=== PATIENT | male | born 1935 | race Caucasian/White ===

== ENCOUNTER 2016-11-03 13:00 | Outpatient (CLI) | payer MEDICARE ==
[~2016-11-03 13:00] MED LIST: Gadobenate Dimeglumine 529 MG/1 ML (20ML VIAL) ONE
--- OUTSIDE RECORDS SUMMARY | 2016-11-03 13:02 | XMS | Clinical Summary ---
:1935 Author Organization [facility] Address [address] [place] [address] Phone Care Team Providers Name Role Phone , Primary Care Provider Unavailable Allergies Not on File Current Medications Not on file Active Problems Not on file Social History Tobacco Use Types Packs/Day Years Used Date Never Assessed Sex Assigned at Date Recorded Not on file Last Filed Vital Signs Not on file Plan of Treatment Not on file Results Not on filefrom Last 3 Months
--- NOTE | 2016-11-03 16:25 | ULT ---
CAROTID ULTRASOUND: COMPARISON: None. History Dizziness and carotid stenosis. TECHNIQUE: Multiplanar, hodge scale, and color Doppler images were obtained in a carotid ultrasound. Spectral analysis of the Doppler waveforms was performed. FINDINGS: No significant plaque is seen in either common internal carotid artery. The Doppler waveforms are n ormal bilaterally. Peak systolic velocity in the right ICA is 67 cm/s. Peak systolic velocity in the right CCA is 76 c m/s. The right ICA/CCA shows 0.9. Peak systolic velocity in the left ICA is 69 cm/s. Peak systolic velocity of the left CCA is 87 cm/ s. The left ICA/CCA ratio is 0.8. The right vertebral artery cannot be visualized. The left vertebral artery demonstrates antegrade f low without focal stenosis. IMPRESSION: 1. No evidence of hemodynamically significant stenosis of the carotid arteries. 2. Nonvisualization of the right vertebral artery. POS: [facility]
--- NOTE | 2016-11-03 16:49 | MRI ---
MRI BRAIN WITH AND WITHOUT IV CONTRAST: Date: 11/03/16 HISTORY: Dizziness, fall. FINDINGS: There is ventricular sulcal prominence due to cortical atrophy. Multiple foci of T2 prolongation in the periventricular white matter consistent with chronic small vessel ischemic disease. No restricte d diffusion is seen. No evidence of transcortical infarct, hemorrhage, mass, midline shift, or abnor mal extra-axial fluid collections noted. No abnormal postcontrast enhancement is noted. There is muc osal disease in the paranasal sinuses. IMPRESSION: 1. Cortical atrophy. 2. Chronic small vessel ischemic disease. 3. No evidence of acute intracranial process or mass. POS: [facility]
== END 2016-11-03 13:01 | disposition home or self-care (01) ==
LOC: SCSMRI 13:00
PROVIDERS: ATTEND Family Medicine
DX: R42 Dizziness and giddiness (principal); R29.90 Unspecified symptoms and signs involving the nervous system; G31.9 Degenerative disease of nervous system, unspecified; W19.XXXA Unspecified fall, initial encounter
CPT/HCPCS: 70553; 93880; A9579